=== PATIENT | male | born 1985 | race Hispanic/Latino ===

== ENCOUNTER 2018-04-10 15:43 | Emergency (ER) | payer OTHER, SELFPAY ==
--- NOTE | 2018-04-10 16:55 | RAD ---
CHEST TWO VIEW 04/10/18 HISTORY: Cough, congestion. COMPARISON: None. FINDINGS: there is some linear atelectasis in the left lung base. No focal air space consolidation, pneumothora x or effusion. PDA clip is present. IMPRESSION: No acute intrathoracic abnormality. POS: [facility]
== END 2018-04-10 16:58 | disposition home or self-care (01) ==
LOC: NAV ERS 15:43
DX: R05 Cough (principal); F17.210 Nicotine dependence, cigarettes, uncomplicated
CPT/HCPCS: 71046

== ENCOUNTER 2020-09-12 16:42 | Emergency (ER) | payer SELFPAY ==
[2020-09-12] MEDS ORDERED: Lidocaine 1% w/Epinephrine 1:100K 30 ML VIAL ONE (16:51)
[2020-09-12] MEDS ORDERED: Boostrix 0.5 ML (Tdap) VIAL ONE (16:52)
--- NOTE | 2020-09-12 17:47 | RAD ---
Radiograph left femur 2 views: HISTORY: Penetrating trauma to left thigh in 35-year-old male FINDINGS: There is no radiopaque foreign body. No evidence of subcutaneous emphysema. No fracture or any other osseous lesion involving femur. IMPRESSION: Negative
[2020-09-12] MEDS ORDERED: CEFAZOLIN 1 GM VIAL ONE (19:08)
[2020-09-12] MEDS ORDERED: Sodium Chloride 0.9% 100 ML ONE (19:09)
== END 2020-09-12 20:33 | disposition short-term general hospital (02) ==
LOC: NAV ERS 16:42
DX: S71.112A Laceration without foreign body, left thigh, initial encounter (principal); F17.210 Nicotine dependence, cigarettes, uncomplicated; W45.8XXA Other foreign body or object entering through skin, initial encounter
CPT/HCPCS: 90471; 90715; 96365; J0690; J2001